=== PATIENT | female | born 2000 | race Caucasian/White ===

== ENCOUNTER 2025-08-30 19:49 | Emergency (ER) | payer OTHER ==
[2025-08-30 20:29] LABS: #Basophils 0.03 10x3/uL (0.0-0.2); #Eosinophils Less than 0.03 10x3/uL (0.0-0.7); #Monocytes 0.51 10x3/uL (0.11-0.59); #Neutrophils 6.07 10x3/uL (1.40-6.50); %Basophils 0.3 % (0.0-1.0); %Eosinophils 0.1 % (0.0-10.0); %Lymphocytes 26.4 % (21.0-51.0); %Monocytes 5.7 % (0.0-10.0); %Neutrophils 67.3 % (42.0-75.0); Hematocrit 41.4 % (36.0-47.0); Hemoglobin 13.9 g/dL (12.0-16.0); Mean Corpuscular Hemoglobin 30.2 pg (27.0-31.0); Mean Corpuscular Volume 89.8 fL (78.0-98.0); Platelet Count 220 10x3/uL (130-400); Red Blood Cell (RBC) Count 4.61 mill/uL (4.20-5.40); White Blood Cell (WBC) Count 9.02 10x3/uL (4.8-10.8)
[2025-08-30] MEDS ORDERED: Acetaminophen 500 MG TAB ONE (20:29)
[2025-08-30 20:43] LABS: ALT (SGPT) 9 U/L (Less than 34); AST (SGOT) 17 U/L (11-34); Albumin 4.8 g/dL (3.1-4.5); Alkaline Phosphatase 74 U/L (40-110); Anion Gap 16 mmol/L (10-20); BUN (Urea Nitrogen) 6 mg/dL (7.0-18.7); Bilirubin, Total 0.6 mg/dL (0.3-1.2); Calc. Creatinine Clearance 0 mL/min (70-130); Calcium 9.4 mg/dL (7.8-10.44); Carbon Dioxide 22 mmol/L (22-29); Chloride 108 mmol/L (98-107); Globulin 3.2 g/dL (2.4-3.5); Glucose 92 mg/dL (70-105); Potassium 3.5 mmol/L (3.5-5.1); Sodium 142 mmol/L (136-145)
[2025-08-30] MEDS ORDERED: Cyclobenzaprine 10 MG TAB ONE (22:11)
[2025-08-30] MEDS ORDERED: Dexamethasone 10 MG/ML VIAL ONE (22:11)
[2025-08-30] MEDS ORDERED: HYDROcodone/Acetaminophen 10/325 mg Tablet ONE (22:12)
== END 2025-08-30 22:50 | disposition home or self-care (01) ==
LOC: ERS 19:49
DX: M54.12 Radiculopathy, cervical region (principal)
CPT/HCPCS: 36415; 80053; 85025; 99283; J1100; Q0162